=== PATIENT | female | born 1990 | race Caucasian/White ===

== ENCOUNTER 2017-02-23 15:39 | Emergency (ER) | payer OTHER ==
--- NOTE | 2017-02-23 17:17 | PD ---
HPI Chief Complaint Decreased FM Date Seen: Feb 23, 2017 Time Seen: 16:35 Travel History International Travel<30 Days: No Contact w/Intl Traveler<30Days: No Known Affected Area: No History of Present Illness HPI 26y/o , IUP at 31.3 PNC uncomplicated per patient report. Patient presents complaining of decreased FM since Wednesday. She reports she was very busy this weekend with baby shower and other activities. She reports she started feeling movements again today, but called the office. She did FKC after eating something sweet with an increase in FM at that time but she was still concerned so she came in. The movements have increased and she reports that she is presently feeling normal and good FM. She denies any LOf or VB, she salima any painful ctx or cramping. She has no concerns at this time. Para: 0 : 1 Miscarriage: 0 : 0 History Past Medical History Narrative Medical Denies Obstetric History Obstetric History Denies STDs Past Surgical History Narrative Surgical Deneis Family History Narrative Family History HTN CAD Social History Alcohol Use: No Tobacco Use: No Substance Abuse: No Review of Systems Except as stated in HPI: all other systems reviewed are Neg Physical Exam Narrative GENERAL: Well-nourished, well-developed patient. SKIN: Warm and dry. HEAD: Normocephalic and atraumatic. EYES: No scleral icterus. No injection or drainage. ENT: No nasal drainage noted. Mucous membranes pink. Airway patent. NECK: Supple, trachea midline. No JVD. CARDIOVASCULAR: Regular rate and rhythm without murmurs, gallops, or rubs. RESPIRATORY: Breath sounds equal bilaterally. No accessory muscle use. BREASTS: Bilateral exam showed no masses , no retractions, no nipple discharge. ABDOMEN/GI: Abdomen soft, non-tender, bowel sounds present, no rebound, no guarding Gravid GENITOURINARY: deferred Uterine Contractions: none FHT's: Category: 1 Baseline: 120s Reactive: reactive NST Variability: moderate LTV, good accels Decels: none EXTREMITIES: No cyanosis or edema. BACK: Nontender without obvious deformity. No CVA tenderness. NEUROLOGICAL: Awake and alert. Motor and sensory grossly within normal limits. Five out of 5 muscle strength in all muscle groups. Normal speech MS: grossly normal ROM, gait, muscle strength PSYCH: grossly normal memory, affect, rest grossly normal. Data Data Vital Signs Reviewed: Yes MDM Plan A/P: 26y/o 1. IUP at 31.3 2. Decreased FM: resolved with patient reporting normal FM since prior to arriving and continued to feel good and normal FM here. NST reactive with FHR reassuring and appropriate for gestational age and BPP 10/. FKC daily. patietn counsleed on timely evaluation of decreased FM and to return if any other concerns, discussed reassuring evaluation today. 3. no evidence of PTL, strict PTL precautions 4. wellbeing: reassuring as above 5. F/u with primary Ob in 2-3d or sooner if needed Diagnosis Diagnosis: Primary Impression: 31 weeks gestation of Additional Impression: Decreased movement during in third trimester, antepartum Disposition: 01 DISCHARGE HOME Condition: Critical Patient Instructions: Labor (ED), Movement (ED) Judi Gerber MD Feb 23, 2017 17:17
--- NOTE | 2017-02-23 17:25 | HHI.PR ---
Subjective Remarks Biophysical Profile Indications: IUP at31w, decreased FM (resolved) FHR: Baseline 120s, good accels, no decles, moderate LTV, reactive/category 1 BPP: AFI5.71/2.79/4.78/2.95 ( Gross FM noted, >3 noted breathing noted, >30s Flexion/extension several episodes noted AMENA normal, >2cm pocket Reactive NST Total score 10/10 Final Dx: IUP at 31w, reassuring testing F/U as clinically indicated Judi Gerber MD Feb 23, 2017 17:25
== END 2017-02-23 17:20 | disposition home or self-care (01) ==
LOC: HOBED 15:39
DX: O36.8130 Decreased fetal movements, third trimester, not applicable or unspecified (principal); Z3A.31 31 weeks gestation of pregnancy
CPT/HCPCS: 59025; 76815

== ENCOUNTER 2017-04-21 17:32 | Inpatient (IN) | payer OTHER ==
[~2017-04-21] VITALS: Ht 162.6 cm; Wt 86.2 kg
[2017-04-21] VITALS (12 sets, daily range): BP systolic 109–129; BP diastolic 59–79; PULSE 77–100; RESP 16; TEMP 98.5
--- NOTE | 2017-04-21 17:51 | PD ---
HPI Chief Complaint Irregular contractions Travel History International Travel<30 Days: No Contact w/Intl Traveler<30Days: No Known Affected Area: No History of Present Illness HPI G1 at 39w 4d presenting with irregular contractions. Patient denies VB/LOF. Reports good movement. Seen in the office today- 3cm dilated. : 1 History Past Medical History Medical History: Denies Significant Hx Past Surgical History Surgical History: No Previous Surgery Social History Alcohol Use: No Tobacco Use: No Substance Abuse: No Physical Exam AFVSS BP 127/72 Narrative GENERAL: Well-nourished, well-developed patient. SKIN: Warm and dry. HEAD: Normocephalic and atraumatic. EYES: No scleral icterus. No injection or drainage. ENT: No nasal drainage noted. Mucous membranes pink. Airway patent. NECK: Supple, trachea midline. No JVD. CARDIOVASCULAR: Regular rate and rhythm without murmurs, gallops, or rubs. RESPIRATORY: Breath sounds equal bilaterally. No accessory muscle use. BREASTS: Bilateral exam showed no masses , no retractions, no nipple discharge. ABDOMEN/GI: Abdomen soft, non-tender, bowel sounds present, no rebound, no guarding Gravid to [-] weeks size Fundal Height: [-] GENITOURINARY: External Genitalia: intact and normal in appearance BUS glands: [-] Cervix: [-] Dilatation: [3-4] Effacement: [80] Station: [1] Presentation: [-] Membranes: [intact or ruptured] Uterine Contractions: [2-3] FHT's: Category: [2] Baseline: [130s] Reactive: [yes] Variability: [moderate] Decels: [variables] EXTREMITIES: No cyanosis or edema. BACK: Nontender without obvious deformity. No CVA tenderness. NEUROLOGICAL: Awake and alert. Motor and sensory grossly within normal limits. Five out of 5 muscle strength in all muscle groups. Normal speech. MDM Interpretation(s) IUP at 39w 4d, irregular contractions, Category 2 heart tracing. Plan Will admit. Dr. Marrufo notified. All questions answered. Diagnosis Diagnosis: Primary Impression: 39 weeks gestation of Additional Impressions: Irregular uterine contractions Variable heart rate decelerations, antepartum Disposition: 01 DISCHARGE HOME Condition: Good Tatiana Perez MD Apr 21, 2017 17:51
[2017-04-21] MEDS ORDERED: SODIUM CHLORID 0.9% 500 ML INJ 500 ML IV PRN (19:45)
[2017-04-21] MEDS ORDERED: MINERAL OIL 10 ML VIAL TOPICAL PRN (19:45)
[2017-04-21] MEDS ORDERED: OXYTOCIN 30 UNITS-500ML PREMIX 500 ML IV ONE (19:45)
[2017-04-21] MEDS ORDERED: LIDOCAINE HCL 1% 50 ML VIAL INFIL PRN (19:45)
[2017-04-21] MEDS ORDERED: LACTATED RINGER'S 1000 ML INJ 1,000 ML IV PRN (19:45)
[2017-04-21] MEDS ORDERED: CITRIC ACID-SODIUM CITRATE LIQ 30 ML UDC PO SCH (19:45)
[2017-04-21] MEDS ORDERED: LIDOCAINE HCL 1% 50 ML VIAL I-DERMAL PRN (19:45)
[2017-04-21] MEDS ORDERED: PREN29TA PO (19:46)
[2017-04-21] MEDS ORDERED: SODIUM CHLOR 0.9% 1000 ML INJ 1,000 ML IV PRN (20:05)
[2017-04-21] MEDS: LACTATED RINGER'S 1000 ML INJ 1,000 ML IV SCH (20:56)
[2017-04-21 20:57] LABS: BLOOD, URINE SMALL (NEG); COMMENT (UR) CULT NOT INDICATED; CULTURE IF INDICATED CULT NOT INDICATED; GLUCOSE,URINE NEG (NEG); KETONE, URINE TRACE mg/dL (NEG); NITRITE,URINE NEG (NEG); PH, URINE 6.5 (5.0-8.5); SQUAMOUS EPITHELIAL CELL URINE <1 /hpf (0-5); URINE COLOR LIGHT-YELLOW (YELLW/STRAW)
[2017-04-21] MEDS ORDERED: ePHEDrine/NS 25 MG/5 ML SYR ONE (21:45)
[2017-04-21] MEDS ORDERED: fentaNYL 2MCG-BUPIV 0.125% INJ 100 ML ONE (21:45)
[2017-04-21 21:58] LABS: AUTOMATED NEUTROPHIL # 10.9 TH/MM3 (1.8-7.7); BASOPHIL % 0.2 % (0.0-2.0); EOSINOPHIL % 0.3 % (0.0-4.0); HEMO FLAGS DIFF FINAL; LYMPH % 12.5 % (9.0-44.0); LYMPHOCYTE # 1.7 TH/MM3 (1.0-4.8); MEAN CELL VOLUME 90.1 FL (80.0-100.0); MEAN CORPUSCULAR HEMOGLOBIN 29.1 PG (27.0-34.0); MEAN CORPUSCULAR HGB CONC 32.3 % (32.0-36.0); MONO % 5.7 % (0.0-8.0); NEUT % 81.3 % (16.0-70.0); PLATELET COUNT 239 TH/MM3 (150-450); RED CELL DISTRIBUTION WIDTH 13.4 % (11.6-17.2); WHITE BLOOD COUNT 13.5 TH/MM3 (4.0-11.0)
[2017-04-22] VITALS (32 sets, daily range): BP systolic 102–132; BP diastolic 58–86; PULSE 60–171; RESP 16–18; TEMP 97.7–98
[2017-04-22] MEDS ORDERED: DO NOT ADMINISTER ANTICOAGULANTS PRN (00:45)
[2017-04-22] MEDS ORDERED: fentaNYL 2MCG-BUPIV 0.125% 100 ML EPIDURAL SCH (00:45)
[2017-04-22] MEDS ORDERED: NO SYSTEM NARCOTICS PRN (00:45)
[2017-04-22] MEDS ORDERED: ePHEDrine/NS 25 MG/5 ML SYR IV PRN (00:45)
--- NOTE | 2017-04-22 06:55 | PD.OB.DELI ---
Weeks gestation: 39 Gest age assessed date: Apr 21, 2017 Gest age assessed time: 20:45 Pt started active labor?: Yes Medical induction of labor?: No Artificial rupture of membrane: No Anesthesia: Epidural Episiotomy: None Vaginal Delivery: Normal Presentation: Occiput anterior Nuchal Cord: None Delayed cord clamping (45 sec): Yes : Male Delivery date: Apr 22, 2017 Delivery time: 00:00 One Minute : 8 Five Minute : 9 Weight: 8/4 Placenta: Spontaneous delivery Laceration: Vaginal laceration, 1 deg Repair: Vicryl interrupted Estimated blood loss: @250cc Sunny Marrufo MD Apr 22, 2017 06:55
[2017-04-22] MEDS ORDERED: SODIUM CHLORIDE 0.9% FLUSH 10 ML FLUSH IV FLUSH PRN (07:00)
[2017-04-22] MEDS ORDERED: OXYTOCIN 10 UNIT/ML AMP XX PRN (07:00)
[2017-04-22] MEDS ORDERED: ONDANSETRON ODT 4 MG TAB PO PRN (07:00)
[2017-04-22] MEDS ORDERED: ZOLPIDEM TARTRATE 5 MG TAB PO PRN (07:00)
[2017-04-22] MEDS ORDERED: OXYTOCIN 30 UNITS-500ML PREMIX 500 ML IV SCH (07:00)
[2017-04-22] MEDS ORDERED: WITCH HAZEL 50%/GLYCERIN 12.5% 40 PAD JAR TOPICAL PRN (07:00)
[2017-04-22] MEDS ORDERED: BENZOCAINE 20% TOPICAL SPRAY 60 ML CAN TOPICAL PRN (07:00)
[2017-04-22] MEDS ORDERED: DOCUSATE SODIUM 50 MG/SENNA 8.6 MG TAB PO PRN (07:00)
[2017-04-22] MEDS ORDERED: ACETAMINOPHEN 325 MG TAB PO PRN (07:00)
[2017-04-22] MEDS ORDERED: ALUMINUM/MAGNESIUM/SIMETH 30 ML CUP PO PRN (07:00)
[2017-04-22] MEDS: IBUPROFEN 600 MG TAB PO PRN (08:20)
[2017-04-22] MEDS ORDERED: SODIUM CHLORIDE 0.9% FLUSH 10 ML FLUSH IV FLUSH SCH (09:00)
[2017-04-22] MEDS ORDERED: MEASLES, MUMPS, RUBELLA VACCINE 0.5 ML VIAL SQ ONE (16:00)
[2017-04-22] MEDS ORDERED: DIPHTH/TETANUS/ACEL PERTUSSIS (BOOSTER) 0.5 ML VIAL/PFS IM ONE (16:00)
[2017-04-23 04:00] VITALS: BP 120/72; PULSE 84; RESP 18; TEMP 97.8
--- NOTE | 2017-04-23 08:04 | HHI.OB ---
Subjective Post Day: 1 Remarks doing well, will pay for circ today Objective Vitals/I&O Vital Signs Date Time Temp Pulse Resp B/P (MAP) Pulse Ox O2 Delivery O2 Flow Rate FiO2 04/23/17 04:00 97.8 84 18 120/72 (88) 04/22/17 19:59 97.9 81 16 118/73 (88) 04/22/17 10:00 97.7 78 18 116/72 (87) Objective Remarks GENERAL: Well-nourished, well-developed patient. CARDIOVASCULAR: Regular rate and rhythm without murmurs, gallops, or rubs. RESPIRATORY: Breath sounds equal bilaterally. No accessory muscle use. ABDOMEN/GI: Abdomen soft, non-tender. Fundus: Firm, non-tender at umbilicus. GENITOURINARY: Light to moderate bleeding. EXTREMITIES: No cyanosis or edema, non-tender, without signs of DVT. Medications and IVs Current Medications Medications (Trade) Dose Ordered Sig/Daryl Route Start Time Stop Time Status Last Admin Lactated Ringer's 1,000 ml @ 125 mls/hr Q8H IV 04/21/17 19:45 04/21/17 20:56 Lactated Ringer's 1,000 ml @ 3,000 mls/hr Q20M PRN IV 04/21/17 19:45 04/21/17 21:11 Sodium Chloride 500 ml @ 1,000 mls/hr ONCE PRN IV 04/21/17 19:45 04/24/17 19:44 Sodium Chloride 1,000 ml @ 100 mls/hr Q10H PRN IV 04/21/17 20:05 (Xylocaine 1% Inj (50 ml)) 0.1 ml UNSCH X1 PRN I-DERMAL 04/21/17 19:45 04/24/17 19:44 (Bicitra Liq) 30 ml PROFESSOR SCULPTURE PO 04/21/17 19:45 04/25/17 19:44 (fentaNYL INJ) 50 mcg Q1H PRN IV PUSH 04/21/17 19:45 (fentaNYL INJ) 100 mcg Q1H PRN IV PUSH 04/21/17 19:45 (Xylocaine 1% Inj (50 ml)) 10 ml UNSCH X1 PRN INFIL 04/21/17 19:45 04/23/17 19:44 (Muri-Lube Oil) 10 ml UNSCH PRN TOPICAL 04/21/17 19:45 Fentanyl/ Bupivacaine HCl 100 ml @ 12 mls/hr TITRATE EPIDURAL 04/22/17 00:45 (NS Flush) 2 ml BID IV FLUSH 04/22/17 09:00 (NS Flush) 2 ml UNSCH PRN IV FLUSH 04/22/17 07:00 (Tylenol) 650 mg Q4H PRN PO 04/22/17 07:00 (Motrin) 600 mg Q6H PRN PO 04/22/17 07:00 04/22/17 08:20 (Americaine 20% Top Spr) 1 spray Q4H PRN TOPICAL 04/22/17 07:00 04/22/17 20:44 (Tucks Pads) 1 applic QID PRN TOPICAL 04/22/17 07:00 04/22/17 20:44 (Krysta-Colace) 2 tab Q12H PRN PO 04/22/17 07:00 (Ambien) 5 mg HS PRN PO 04/22/17 07:00 (Mag-Al Plus Susp Liq) 15 ml Q8H PRN PO 04/22/17 07:00 (Zofran Odt) 4 mg Q6H PRN PO 04/22/17 07:00 Assessment/Plan Problem List: (1) Vaginal delivery ICD Codes: O80 - Encounter for full-term uncomplicated delivery Assessment and Plan s/p , PPD #1 routine PP care Discharge Planning in am Attending Attestation pt seen by Carola Nice MD Apr 23, 2017 08:04
[2017-04-23 08:35] VITALS: BP 115/65; PULSE 90; RESP 16; TEMP 97.8
[2017-04-23] MEDS: LACTATED RINGER'S 1000 ML INJ 1,000 ML IV SCH (09:12)
[2017-04-23] MEDS: IBUPROFEN 600 MG TAB PO PRN (20:50)
[2017-04-23 21:00] VITALS: BP 107/72; PULSE 75; RESP 16; TEMP 97.2
[2017-04-24 04:00] VITALS: BP 118/75; PULSE 61; RESP 16; TEMP 98
[2017-04-24 09:00] VITALS: BP 114/68; PULSE 64; RESP 20; TEMP 96.6
--- NOTE | 2017-04-24 09:33 | HHI.OB ---
Subjective Post Day: 2 Remarks no complaints, circ done today Objective Vitals/I&O Vital Signs Date Time Temp Pulse Resp B/P (MAP) Pulse Ox O2 Delivery O2 Flow Rate FiO2 04/24/17 04:00 61 118/75 (89) 04/24/17 04:00 98.0 16 04/23/17 21:00 75 107/72 (84) 04/23/17 21:00 97.2 16 Objective Remarks GENERAL: Well-nourished, well-developed patient. CARDIOVASCULAR: Regular rate and rhythm without murmurs, gallops, or rubs. RESPIRATORY: Breath sounds equal bilaterally. No accessory muscle use. ABDOMEN/GI: Abdomen soft, non-tender. Fundus: Firm, non-tender at umbilicus. GENITOURINARY: Light to moderate bleeding. EXTREMITIES: No cyanosis or edema, non-tender, without signs of DVT. Medications and IVs Current Medications Medications (Trade) Dose Ordered Sig/Daryl Route Start Time Stop Time Status Last Admin Lactated Ringer's 1,000 ml @ 125 mls/hr Q8H IV 04/21/17 19:45 04/21/17 20:56 Lactated Ringer's 1,000 ml @ 3,000 mls/hr Q20M PRN IV 04/21/17 19:45 04/21/17 21:11 Sodium Chloride 500 ml @ 1,000 mls/hr ONCE PRN IV 04/21/17 19:45 04/24/17 19:44 Sodium Chloride 1,000 ml @ 100 mls/hr Q10H PRN IV 04/21/17 20:05 (Xylocaine 1% Inj (50 ml)) 0.1 ml UNSCH X1 PRN I-DERMAL 04/21/17 19:45 04/24/17 19:44 (Bicitra Liq) 30 ml LINOTYPE WORKER PO 04/21/17 19:45 04/25/17 19:44 (fentaNYL INJ) 50 mcg Q1H PRN IV PUSH 04/21/17 19:45 (fentaNYL INJ) 100 mcg Q1H PRN IV PUSH 04/21/17 19:45 (Muri-Lube Oil) 10 ml UNSCH PRN TOPICAL 04/21/17 19:45 Fentanyl/ Bupivacaine HCl 100 ml @ 12 mls/hr TITRATE EPIDURAL 04/22/17 00:45 (NS Flush) 2 ml BID IV FLUSH 04/22/17 09:00 (NS Flush) 2 ml UNSCH PRN IV FLUSH 04/22/17 07:00 (Tylenol) 650 mg Q4H PRN PO 04/22/17 07:00 (Motrin) 600 mg Q6H PRN PO 04/22/17 07:00 04/23/17 20:50 (Americaine 20% Top Spr) 1 spray Q4H PRN TOPICAL 04/22/17 07:00 04/22/17 20:44 (Tucks Pads) 1 applic QID PRN TOPICAL 04/22/17 07:00 04/22/17 20:44 (Krysta-Colace) 2 tab Q12H PRN PO 04/22/17 07:00 (Ambien) 5 mg HS PRN PO 04/22/17 07:00 (Mag-Al Plus Susp Liq) 15 ml Q8H PRN PO 04/22/17 07:00 (Zofran Odt) 4 mg Q6H PRN PO 04/22/17 07:00 Assessment/Plan Problem List: (1) Vaginal delivery ICD Codes: O80 - Encounter for full-term uncomplicated delivery Assessment and Plan s/p , PPD #2 routine PP care Discharge Planning today Attending Attestation pt seen by Carola Nice MD Apr 24, 2017 09:33
[2017-04-24] MEDS ORDERED: IBUP-232 PO (09:34)
--- NOTE | 2017-04-24 09:35 | HHI.DCPOC ---
Discharge Care Plan Your Health Problems Are: Pelvic pain Report Symptoms to Your Doctor -Temperature above 100.5 degrees -Redness, of incision or excessive or foul smelling drainage -Unusual pain or calf pain -Increased vaginal bleeding -Painful or difficulty urinating -Feelings of extreme sadness or anxiety after 2 weeks Goals to Promote Your Health * To prevent worsening of your condition and complications * To maintain your health at the optimal level Directions to Meet Your Goals Take your medications as prescribed Follow your dietary instruction Follow activity as directed Ensure plenty of rest for recovery Drink fluids for hydration Keep your appointments as scheduled Take your immunizations and boosters as scheduled If your symptoms worsen call your PCP, if no PCP go to Urgent Care Center or Emergency Room Smoking is Dangerous to Your Health. Avoid second hand smoke Call the 24-hour crisis hotline for domestic abuse at Carola Meehan MD Apr 24, 2017 09:35
== END 2017-04-24 12:10 | disposition home or self-care (01) | DRG 775 ==
LOC: HOBED 17:32 → H2EB 19:48 → H1EA 04-22 08:28
PROVIDERS: ADMIT Obstetrics & Gynecology; ATTEND Obstetrics & Gynecology
PROC: 10E0XZZ Delivery of Products of Conception, External Approach (ICD-10-PCS; principal; 2017-04-22)
PROC: 0HQ9XZZ Repair Perineum Skin, External Approach (ICD-10-PCS; 2017-04-22)
PROC: 00HU33Z Insertion of Infusion Device into Spinal Canal, Percutaneous Approach (ICD-10-PCS; 2017-04-22)
PROC: 3E0R3CZ (ICD-10-PCS; 2017-04-22)
DX: O70.0 First degree perineal laceration during delivery (principal); Z37.0 Single live birth; Z3A.39 39 weeks gestation of pregnancy
CPT/HCPCS: 59025; 81001; 85025; 86900; 86901; 90715; J7120